=== PATIENT | female | born 1995 | race Caucasian/White ===

== ENCOUNTER 2016-10-29 11:12 | Outpatient (CLI) ==
[2016-10-29 12:48] LABS: BASOPHILS # (AUTO) 0.1 K/uL (0-0.2); BASOPHILS % (AUTO) 0.6 % (0.0-3.0); EOSINOPHILS # (AUTO) 0.1 K/ul (0.0-0.7); EOSINOPHILS % (AUTO) 0.7 % (0.0-7.0); HEMATOCRIT 41.2 % (37.0-47.0); HEMOGLOBIN 14.1 g/dl (12.0-16.0); IMMATURE GRANULOCYTE % (AUTO) 0.2 % (0.0-5.0); LYMPHOCYTES # (AUTO) 1.8 K/uL (0.60-3.4); LYMPHOCYTES % (AUTO) 21.5 (10.0-50.0); MEAN CORPUSCULAR HEMOGLOBIN 31.8 pg (27.0-31.0); MEAN CORPUSCULAR HGB CONC 34.2 (31.8-35.4); MEAN CORPUSCULAR VOLUME 92.8 fl (81.0-99.0); MONOCYTES # (AUTO) 0.4 K/uL (0.4-2.0); MONOCYTES % (AUTO) 4.3 (0-10); NEUTROPHILS % (AUTO) 72.7; PLATELET COUNT 231 10^3/uL (140-440); RED BLOOD COUNT 4.44 10^6/ul (4.20-5.40)
[2016-10-29 13:23] LABS: ALBUMIN 4.4 g/dL (3.4-5.0); ALBUMIN/GLOBULIN RATIO 1.29; ANION GAP 12.9; BILIRUBIN,TOTAL 0.5 mg/dL (0.00-1.20); CALCIUM 9.2 mg/dL (8.2-10.2); CREATININE 0.8 mg/dL (0.60-1.30); POTASSIUM 3.9 mmol/L (3.5-5.10); TOTAL PROTEIN 7.8 g/dL (6.4-8.2)
== END 2016-10-29 11:13 | disposition home or self-care (01) ==
LOC: LAB 11:12
PROVIDERS: ATTEND Nurse Practitioner Family
DX: R63.4 Abnormal weight loss (principal)
CPT/HCPCS: 36415; 80053; 84443; 85025

== ENCOUNTER 2016-11-05 10:28 | Outpatient (CLI) ==
--- NOTE | 2016-11-05 10:56 | DI ---
EXAM: Cervical spine radiographs. HISTORY: Initial presentation for neck strain. COMPARISON: None available. TECHNIQUE: Frontal, lateral and odontoid views. FINDINGS: There is straightening of the normal lordosis. Alignment is normal. Vertebral body and intervertebral disc heights are normal. No fracture or subluxation is seen. Prevertebral soft tiss ues are unremarkable. IMPRESSION: Straightening of the normal lordosis which could be due to muscle spasm.
== END 2016-11-05 10:29 | disposition home or self-care (01) ==
LOC: RAD 10:28
PROVIDERS: ATTEND Nurse Practitioner Family
DX: S16.1XXA Strain of muscle, fascia and tendon at neck level, initial encounter (principal); M54.2 Cervicalgia

== ENCOUNTER 2016-11-16 09:18 | Outpatient (CLI) ==
--- NOTE | 2016-11-16 09:52 | US ---
EXAM: ULTRASOUND ABDOMEN LIMITED HISTORY: Generalized abdominal pain FINDINGS: Ultrasound abdomen, limited. Liver size was normal at 9 cm. The liver parenchyma demonst rated normal sonographic appearance without evidence of intrahepatic biliary dilatation or focal les ion. Patent and hepatopedal main portal vein. No evidence of gallbladder stones or sludge. Gallbladder wall thickness was normal at 0.18 centimet ers and the common duct diameter normal at 0.3 centimeters. The visualized portions of the pancreas appeared unremarkable. IMPRESSION: Findings within normal limits.
== END 2016-11-16 09:19 | disposition home or self-care (01) ==
LOC: RAD 09:18
PROVIDERS: ATTEND Nurse Practitioner Family
DX: R10.84 Generalized abdominal pain (principal); R11.2 Nausea with vomiting, unspecified

== ENCOUNTER 2016-12-05 07:58 | Outpatient (CLI) ==
--- NOTE | 2016-12-05 10:43 | NM ---
EXAM: Hepatobiliary scan HISTORY: Abdominal pain, nausea and vomiting for 4 months. COMPARISON: None of this type. Ultrasound 11/16/2016. PROCEDURE: The patient was injected with 5.2 mCi of 99mTc mebrofenin intravenously. Images of the a bdomen were obtained at 5 min intervals for 30 minutes. Additional images were obtained at 45 minut es and 1 hour. The patient was then given 8 ounces of Boost after which images of the gallbladder we re obtained to assess gallbladder contraction. FINDINGS: Sequential images demonstrate normal uptake of tracer into the liver. Activity is seen in the intrahepatic biliary ducts at about 10 minutes. The activity appears in the gallbladder at abo ut 10 minutes. Subsequent images demonstrate increasing activity in the gallbladder. Activity firs t appears in the small bowel at 25 minutes. The gallbladder ejection fraction is 77% . IMPRESSION: 1.Normal hepatobiliary scan. 2.The gallbladder ejection fraction is 77% (normal).
== END 2016-12-05 07:59 | disposition home or self-care (01) ==
LOC: RAD 07:58
PROVIDERS: ATTEND Nurse Practitioner Family
DX: R10.84 Generalized abdominal pain (principal); R11.2 Nausea with vomiting, unspecified